=== PATIENT | male | born 1955 | race Caucasian/White ===

== ENCOUNTER 2024-12-17 11:32 | Day surgery (SDC) | payer BC, MEDICARE, MEDICAID ==
[~2024-12-17] VITALS: Ht 165.1 cm; Wt 104.0 kg
[~2024-12-17 11:32] MED LIST: AMLO2.5T3 PO; ASPI-163 PO; ATOR40TA75 PO; DICL20GE TP; HYDR-3719 PO; LIDOCAINE 2% 100 MG/5 ML SDV (FOR ANES.) As Ordered ONE; LOSA50TA28 PO; METO1TAB32 PO; OMEG12002 PO; OMEP40CA5 PO; ONDANSETRON 4MG 2ML VIAL As Ordered ONE; OSTETAB2 PO; ROCURONIUM BROMIDE 50MG/5ML VIAL As Ordered ONE; SENN-186 PO; SUGAMMADEX SODIUM 500 MG/5 ML VIAL As Ordered ONE; dexAMETHasone 4 MG/ML 1 ML VIAL As Ordered ONE
[2024-12-17] MEDS ORDERED: LR 1,000 ML IV SCH (11:40)
[2024-12-17] MEDS ORDERED: HOME MED LIST COMPLETE! XX SCH (12:25)
[2024-12-17] MEDS ORDERED: MIDAZOLAM INJ 2 MG/2 ML VIAL As Ordered ONE (13:02)
[2024-12-17] MEDS ORDERED: ACETAMINOPHEN 325 MG TAB PO PRN (14:45)
[2024-12-17] MEDS ORDERED: PERCOCET 5MG/325MG TAB PO PRN (14:45)
[2024-12-17] MEDS ORDERED: ONDANSETRON 4MG 2ML VIAL IV PRN ×2 (14:45→19:30)
[2024-12-17] MEDS ORDERED: MORPHINE 2 MG/ML 1 ML VIAL IV PRN (14:45)
[2024-12-17] MEDS: ceFAZolin SOD 2 GM IV ONCE IV ONE (15:15)
[2024-12-17] MEDS: HEPARIN SOD 5000 UNITS/ML 1 ML VIAL/SYRINGE SQ ONE (15:18)
[2024-12-17] MEDS ORDERED: HYDROmorphone HCL 2 MG/ML 1 ML VIAL As Ordered ONE (17:27)
[2024-12-17] MEDS ORDERED: ACETAMINOPHEN 1000MG/100ML IV BAG As Ordered ONE (17:29)
[2024-12-17] MEDS: LIDOCAINE 1% SDV 30 ML VIAL As Ordered ONE (19:30)
[2024-12-17] MEDS: HYDROMORPHONE HCL 0.5 MG/0.5 ML SYRINGE IV PRN (20:31)
[2024-12-17 21:20] VITALS: BP 163/74; TEMP 96.9; O2SAT 94
[2024-12-17] MEDS: LR 1,000 ML IV SCH (21:20)
[2024-12-17 21:46] LABS: PLATELET COUNT, AUTOMATED 209 10^3/uL (150-450)
[2024-12-17 21:50] VITALS: BP 150/62; TEMP 97.2; O2SAT 99
[2024-12-17 21:59] LABS: CALCIUM LEVEL 8.8 MG/DL (8.3-10.6); CARBON DIOXIDE LEVEL 29 MMOL/L (20-31); CHLORIDE LEVEL 105 MMOL/L (98-107); CREATININE FOR GFR 0.86 MG/DL (0.70-1.30); GLOMERULAR FILTRATION RATE > 90.0 (>49); POTASSIUM SERUM 4.0 MMOL/L (3.5-5.1); SODIUM LEVEL 144 MMOL/L (136-145)
[2024-12-17] MEDS: NS (Normal Saline) 0.9% 1,000 ML IV SCH (22:06)
[2024-12-17] MEDS: DOCUSATE SODIUM 100 MG CAPSULE PO SCH (22:08)
[2024-12-17] MEDS: LOSARTAN 50 MG TABLET PO SCH (22:08)
[2024-12-17] MEDS: ATORVASTATIN 20 MG TAB PO SCH (22:09)
[2024-12-17] MEDS: PERCOCET 5MG/325MG TAB PO PRN (22:11)
[2024-12-17] MEDS: ceFAZolin SOD 1 GM in DEXTROSE 5% (D5W) ADV/MINI-BAG 50 ML IV SCH (22:19)
[2024-12-17] MEDS: HEPARIN SOD 5000 UNITS/ML 1 ML VIAL/SYRINGE SC SCH (22:20)
[2024-12-17 22:30] VITALS: BP 139/60; TEMP 97.5; O2SAT 97
[2024-12-17 23:30] VITALS: BP 122/60; TEMP 97.8; O2SAT 97
[2024-12-18] VITALS (7 sets, daily range): BP systolic 117–133; BP diastolic 58–62; TEMP 97.5–98.4; O2SAT 95–98
[2024-12-18 08:21] LABS: PLATELET COUNT, AUTOMATED 204 10^3/uL (150-450)
[2024-12-18 08:42] LABS: CALCIUM LEVEL 8.3 MG/DL (8.3-10.6); CARBON DIOXIDE LEVEL 29 MMOL/L (20-31); CHLORIDE LEVEL 102 MMOL/L (98-107); CREATININE FOR GFR 0.72 MG/DL (0.70-1.30); GLOMERULAR FILTRATION RATE > 90.0 (>49); POTASSIUM SERUM 4.5 MMOL/L (3.5-5.1); SODIUM LEVEL 142 MMOL/L (136-145)
[2024-12-18] MEDS: METOPROLOL SUCC. 25 MG *XL* TAB PO SCH (09:12)
[2024-12-18] MEDS ORDERED: CIPR-249 PO (09:26)
== END 2024-12-18 15:18 | disposition home or self-care (01) ==
LOC: M SDC 11:32 → UNDOADMOB 11:33 → M MS4PR 11:33 → M SDC 12-18 15:18 → UNDODISOB 12-18 15:18
PROVIDERS: ATTEND Urology
DX: C61 Malignant neoplasm of prostate (principal); I25.10 Atherosclerotic heart disease of native coronary artery without angina pectoris; I10 Essential (primary) hypertension; Z98.61 Coronary angioplasty status; E78.5 Hyperlipidemia, unspecified; I25.2 Old myocardial infarction; M19.90 Unspecified osteoarthritis, unspecified site; Z88.0 Allergy status to penicillin; Z87.891 Personal history of nicotine dependence; Z79.82 Long term (current) use of aspirin; Z79.899 Other long term (current) drug therapy
CPT/HCPCS: 36415; 38571; 55866; 80048; 85027; 86850; 86900; 86901; 88305; 88309; 96365; 96366; 96372; J0131; J0665; J0690; J1100; J1171; J2250; J2405; J3010; S2900